=== PATIENT | female | born 1995 | race Caucasian/White ===

== ENCOUNTER 2020-04-01 13:14 | Inpatient (IN) | payer OTHER ==
[2020-04-01] VITALS (19 sets, daily range): BP systolic 99–146; BP diastolic 62–93
[~2020-04-01] VITALS: Ht 160 cm; Wt 88.6 kg
[2020-04-01] MEDS ORDERED: PREN29TA4 PO (13:35)
[2020-04-01] MEDS ORDERED: miSOPROStol 50 MCG 1/2 TAB (S0191) PO ONE (14:45)
[2020-04-01 14:58] LABS: BASO % 0.3 % (0.0-1.0); EOS % 0.5 % (0.0-3.0); HEMATOCRIT 34.3 % (36.0-47.0); LYMPH # 1.5 10^3/uL (1.5-5.0); LYMPH % 20.3 % (24.0-44.0); MEAN CORPUSCULAR HEMOGLOBIN 26.3 pg (27.0-33.0); MEAN CORPUSCULAR HGB CONC 32.1 g/dl (32.0-36.5); MEAN CORPUSCULAR VOLUME 81.9 fl (80.0-96.0); MONO # 0.8 10^3/uL (0.0-0.8); MONO % 10.3 % (0.0-5.0); NEUTROPHILS # 5.2 10^3/uL (1.5-8.5); NEUTROPHILS % 68.1 % (36.0-66.0); PLATELET COUNT, AUTOMATED 130 10^3/uL (150-450); RED BLOOD COUNT 4.19 10^6/uL (4.00-5.40); WHITE BLOOD COUNT 7.6 10^3/uL (4.0-10.0)
--- NOTE | 2020-04-01 17:49 | IPNPDOC ---
Text Note Date of Service The patient was seen on 04/01/20. NOTE accept care from [facility] patient is a 25 y/o G1 at 41+1 admitted for IOL for oligo. patient had one dose of misoprostol 50mcg. denies ctx. cervix checked to be 1cm/posterior, unable to place motley bulb by [facility]. vitals: normal fht: 130/mod osei/pos accel/no decel toco: no ctx a/p patient not in labor. continue to monitor. redose cytotec as needed. recheck to attempt for motley bulb once patient having regular ctx. Yudy, VS,[place], I+O VS, Fishbone, I+O Laboratory Tests 04/01/20 13:52 Vital Signs Date Time Temp Pulse Resp B/P (MAP) Pulse Ox O2 Delivery O2 Flow Rate FiO2 04/01/20 17:13 86 16 110/71 (84) Room Air 04/01/20 13:33 97.1 98 ROBYN YANEZ DO April 01, 2020 17:49
[2020-04-01] MEDS ORDERED: miSOPROStol 25 MCG 1/4 TAB (S0191) SL ONE (19:00)
[2020-04-01] MEDS ORDERED: PROMETHAZINE INJ 25 MG/ML VIAL (J2550) IV ONE (19:30)
[2020-04-01] MEDS ORDERED: BUTORPHANOL 2 MG/ML INJ (J0595) IV ONE (19:30)
[2020-04-01] MEDS ORDERED: LR 1,000 ML IV ONE (21:55)
[2020-04-01] MEDS ORDERED: FENTANYL 2MCG/ML ROPIVACAINE 0.2% IN 0.9% NACL 100ML IVBAG As Ordered ONE (22:03)
[2020-04-01] MEDS ORDERED: LR 1,000 ML IV SCH (22:40)
[2020-04-01] MEDS ORDERED: LACTATED RINGER'S 1000 ML IV PRN (23:30)
[2020-04-01] MEDS ORDERED: REFRIGERATOR IV KEYS XX PRN (23:30)
[2020-04-01] MEDS ORDERED: FENTANYL/ROPIVACAINE/NACL BAG 100 ML EPIDURAL SCH (23:30)
[2020-04-01] MEDS ORDERED: NALOXONE INJ 0.4MG/1ML VIAL (J2310 PER 1MG) IV PRN (23:30)
[2020-04-01] MEDS ORDERED: diphenhydrAMINE 50MG/ML VIAL (J1200) IV PRN (23:30)
[2020-04-01] MEDS ORDERED: EPIDURAL COMMENT XX SCH (23:30)
[2020-04-01] MEDS ORDERED: ONDANSETRON 4MG/2ML VIAL IV PRN (23:30)
[2020-04-01] MEDS ORDERED: ePHEDrine SULFATE 25 MG/5 ML(5MG/ML) SYRINGE IV PRN (23:30)
[2020-04-01] MEDS ORDERED: EPIDURAL/PCA KEYS XX PRN (23:30)
[2020-04-02] VITALS (26 sets, daily range): BP systolic 94–152; BP diastolic 53–85
[2020-04-02] MEDS ORDERED: OXYTOCIN 30 UNITS IN 0.9% NaCl 500ML IV BAG (J2590) As Ordered ONE (06:01)
--- NOTE | 2020-04-02 06:19 | IPNPDOC ---
Text Note Date of Service The patient was seen on 04/02/20. NOTE patient with epidural for pain control. vitals:normal fht: 140/mod osei/pos accel/no decel toco: ctx 2-3 mins ce: c/c/+2 a/p patient at second stage of labor. trial of pushing. march labor down for 1 hr if patient unable to push effectively at this time. DO Yudy VS,[place], I+O VS, Fishbone, I+O Laboratory Tests 04/01/20 13:52 Vital Signs Date Time Temp Pulse Resp B/P (MAP) Pulse Ox O2 Delivery O2 Flow Rate FiO2 04/02/20 05:33 90 120/75 (90) 04/02/20 02:46 98.1 04/01/20 23:01 18 97 Room Air l I&O- Last 24 Hours up to 6 AM 04/02/20 06:00 Intake Total 1926 ml Output Total 1000 ml Balance 926 ml ROBYN YANEZ DO April 02, 2020 06:19
[2020-04-02] MEDS ORDERED: OXYTOCIN DRIP 30 UNITS in IV 1 EA IV SCH ×2 (07:45→08:59)
[2020-04-02] MEDS ORDERED: ACETAMINOPHEN 500 MG TAB PO ONE (07:45)
[2020-04-02] MEDS ORDERED: DIBUCAINE 1% OINTMENT 30GM TOP PRN (09:00)
[2020-04-02] MEDS ORDERED: MEASLES,MUMPS,RUBELLA VACCINE INJ (MMR-II) (90707) SC SCH (09:00)
[2020-04-02] MEDS ORDERED: RHOGAM 300 MCG (1500 IU) INJ (J2790) IM SCH (09:00)
[2020-04-02] MEDS ORDERED: ANUSOL HC CREAM 30GM TOP PRN (09:00)
[2020-04-02] MEDS ORDERED: METHYLERGONOVINE MALEATE 0.2 MG TAB PO PRN (09:00)
[2020-04-02] MEDS ORDERED: ONDANSETRON 4MG/2ML VIAL IV PRN (09:00)
[2020-04-02] MEDS ORDERED: MOM 30ML SUSPENSION UDC PO PRN (09:00)
[2020-04-02] MEDS ORDERED: DOCUSATE SODIUM 100 MG CAP PO PRN (09:00)
[2020-04-02] MEDS ORDERED: SLF 3 ML SYR IV PRN (10:30)
[2020-04-02] MEDS ORDERED: SLF 3 ML SYR IV SCH (14:00)
[2020-04-02] MEDS: IBUPROFEN 800 MG TAB PO PRN (20:56)
[2020-04-02] MEDS: ACETAMINOPHEN 500 MG TAB PO PRN (22:38)
[2020-04-03 06:00] VITALS: BP 113/61
[2020-04-03] MEDS: PRENATAL VITAMINS CHEWABLE TABLET PO SCH ×2 (09:06→09:07)
[2020-04-03] MEDS: IBUPROFEN 800 MG TAB PO PRN ×2 (13:24→23:37)
[2020-04-03 18:13] VITALS: BP 115/63
[2020-04-04] MEDS: ACETAMINOPHEN 500 MG TAB PO PRN (00:30)
[2020-04-04 06:05] VITALS: BP 116/77
[2020-04-04 08:45] VITALS: BP 116/77
[2020-04-04] MEDS: PRENATAL VITAMINS CHEWABLE TABLET PO SCH (09:34)
[2020-04-04] MEDS ORDERED: IBUP80TA PO (09:52)
[2020-04-04] MEDS ORDERED: ACET-683 PO (09:52)
[2020-04-04] MEDS ORDERED: DIBU10OI TOP (09:52)
== END 2020-04-04 10:30 | disposition home or self-care (01) | DRG 807 ==
LOC: M LDI 13:14 → M OBS 04-02 13:14
PROVIDERS: ADMIT Advanced Practice Midwife; ATTEND Advanced Practice Midwife
PROC: 3E0P7GC Introduction of Other Therapeutic Substance into Female Reproductive, Via Natural or Artificial Opening (ICD-10-PCS; 2020-04-01)
PROC: 10E0XZZ Delivery of Products of Conception, External Approach (ICD-10-PCS; principal; 2020-04-02)
DX: O41.03X1 Oligohydramnios, third trimester, fetus 1 (principal); Z37.0 Single live birth; O48.0 Post-term pregnancy; Z3A.41 41 weeks gestation of pregnancy; O76 Abnormality in fetal heart rate and rhythm complicating labor and delivery; O32.6XX0 Maternal care for compound presentation, not applicable or unspecified; O69.1XX0 Labor and delivery complicated by cord around neck, with compression, not applicable or unspecified; O70.0 First degree perineal laceration during delivery

== ENCOUNTER → 2020-04-01 | Outpatient (CLI) | payer OTHER ==
[~2020-04-01] MED LIST: PREN29TA4 PO
--- NOTE | 2020-04-01 12:27 | REP ---
OB ULTRASOUND BIOPHYSICAL PROFILE: Real-time sonographic evaluation of gravid uterus performed. There is a single living intrauterine gestation. The estimated gestational age is reportedly 41 weeks 1 day, EDC 03/24/2020. heart rate is 160 beats per minute. There is severe oligohydramnios. JAYDEN is 1.4, normal range 7.0 - 19.2. Biophysical profile score 6/8 with no points for amniotic fluid volume. S/D ratio 2.34, normal range 1.6 - 2.6. RI 0.57. position vertex. Placenta posterior and to the right, grade 3, with no previa or abruption. Nuchal cord is suspected. Electronically Signed by Jewel Contreras MD 04/01/2020 12:35 P
== END ==
LOC: M RAD 11:02
PROVIDERS: ATTEND Registered Nurse Maternal Newborn
DX: O41.03X1 Oligohydramnios, third trimester, fetus 1 (principal)

== ENCOUNTER 2021-12-08 07:30 | Day surgery (SDC) | payer OTHER ==
[~2021-12-08] VITALS: Ht 160 cm; Wt 83.0 kg
[~2021-12-08 07:30] MED LIST changes: +ACET-683 PO; +DIBU28OI2 TOP; +IBUP80TA PO; +LR 1,000 ML IV ONE
[2021-12-08 08:02] LABS: HEMATOCRIT 42.1 % (36.0-47.0); HEMOGLOBIN 13.4 g/dl (12.0-15.5); MEAN CORPUSCULAR HEMOGLOBIN 26.6 pg (27.0-33.0); MEAN CORPUSCULAR HGB CONC 31.8 g/dl (32.0-36.5); MEAN CORPUSCULAR VOLUME 83.7 fl (80.0-96.0); PLATELET COUNT, AUTOMATED 155 10^3/uL (150-450); RED BLOOD COUNT 5.03 10^6/uL (4.00-5.40); WHITE BLOOD COUNT 5.6 10^3/uL (4.0-10.0)
[2021-12-08] MEDS ORDERED: BUPIVACAINE/EPIN 0.25% 30 ML VIAL As Ordered ONE (08:02)
[2021-12-08] MEDS ORDERED: LIDOCAINE 2% 100MG/5ML SDV (FOR ANES.) As Ordered ONE (08:20)
[2021-12-08] MEDS ORDERED: ROCURONIUM BROMIDE 50 MG/5 ML VIAL As Ordered ONE (08:20)
[2021-12-08] MEDS ORDERED: fentaNYL 100 MCG/2 ML INJECTION (J3010) As Ordered ONE (08:20)
[2021-12-08] MEDS ORDERED: METOCLOPRAMIDE INJ 10MG/2ML VIAL (J2765 PER 1) As Ordered ONE (08:20)
[2021-12-08] MEDS ORDERED: propofoL 200 MG/20 ML VIAL As Ordered ONE (08:20)
[2021-12-08] MEDS ORDERED: ACETAMINOPHEN 1000MG 100ML IV BTL (OFIRMEV) (J0131 PER 10MG) As Ordered ONE (08:20)
[2021-12-08] MEDS ORDERED: SUGAMMADEX SODIUM 500 MG/5 ML VIAL (BRIDION) As Ordered ONE (08:20)
[2021-12-08] MEDS ORDERED: ONDANSETRON 4MG/2ML VIAL As Ordered ONE (08:20)
[2021-12-08] MEDS ORDERED: MIDAZOLAM INJ 2MG/2ML VIAL (J2250 PER 1MG) As Ordered ONE (08:20)
[2021-12-08] MEDS ORDERED: dexameTHASONE 4 MG/ML 1ML VIAL (J1100 PER 1MG) As Ordered ONE (09:33)
[2021-12-08] MEDS ORDERED: ONDANSETRON 4MG/2ML VIAL IV PRN (10:40)
[2021-12-08] MEDS ORDERED: LR 1,000 ML IV SCH (10:40)
[2021-12-08] MEDS ORDERED: oxyCODONE 5MG TAB PO PRN (10:40)
[2021-12-08] MEDS ORDERED: NORCO, ANEXSIA 5/325MG TABLET (HYDROcodone/ACETAMINOPHEN) PO PRN (10:45)
[2021-12-08] MEDS: fentaNYL 100 MCG/2 ML INJECTION (J3010) IV PRN ×4 (10:48→11:04)
[2021-12-08] MEDS ORDERED: KETOROLAC 60MG 2ML VIAL As Ordered ONE (11:21)
[2021-12-08 14:05] VITALS: BP 128/85
== END 2021-12-08 14:13 | disposition home or self-care (01) ==
LOC: M SDC 07:30
PROVIDERS: ATTEND Surgery
DX: K80.10 Calculus of gallbladder with chronic cholecystitis without obstruction (principal)
CPT/HCPCS: 36415; 47562; 81025; 85027; 88304; J0131; J1100; J1885; J2250; J2405; J2765; J3010; S2900